=== PATIENT | female | born 1950 | race Caucasian/White ===

== ENCOUNTER 2016-09-19 11:15 | Inpatient (IN) | payer OTHER ==
[2017-03-13] MEDS ORDERED: ACETAMINOPHEN 325 MG TAB PO ONE (06:00)
[2017-03-13] MEDS ORDERED: FAMOTIDINE 20 MG TAB PO ONE (06:00)
[2017-03-13] MEDS ORDERED: TRANEXAMIC ACID 3,000 MG in NS 50 ML IRR ONE (06:00)
[2017-03-13] MEDS ORDERED: CHLORHEXIDINE GLUC HIBICLENS 118 ML BTL TP ONE (06:00)
[2017-03-13] MEDS ORDERED: DEXAMETHASONE 4 MG/ML VIAL IVP ONE (06:00)
[2017-03-13] MEDS ORDERED: ROPI/epiNEPH/KETOROLAC JOINT COCKTAIL IU ONE (06:00)
[2017-03-13] MEDS ORDERED: CEFAZOLIN 2 GM/DEXTR 100 ML IV ONE (06:00)
[2017-03-13] MEDS ORDERED: BUPIVACAINE 0.5% 30 ML SDV ONE (07:53)
[2017-03-13] MEDS ORDERED: VANCOMYCIN 1 GM VIAL IV ONE (07:56)
[2017-03-13] MEDS ORDERED: TRANEXAMIC ACID 3,000 MG/50 ML BAG IRR ONE (07:56)
[2017-03-13] MEDS ORDERED: fentaNYL 100 MCG/2 ML INJ ONE (09:31)
[2017-03-13] MEDS ORDERED: PROPOFOL/EMULSION 500 MG/50 ML BOTTLE IV ONE (09:31)
[2017-03-13] MEDS ORDERED: DEXAMETHASONE 4 MG/ML VIAL ONE ×2 (09:32→09:52)
[2017-03-13] MEDS ORDERED: LIDOCAINE 2% 5 ML SDV ONE (09:32)
[2017-03-13] MEDS ORDERED: LIDOCAINE 1% 5 ML SDV ID PRN (09:46)
[2017-03-13] MEDS ORDERED: LR 1,000 ML IV ONE (09:46)
[2017-03-13] MEDS ORDERED: FAMOTIDINE 20 MG TAB ONE (09:52)
[2017-03-13] MEDS ORDERED: ACETAMINOPHEN 325 MG TAB ONE (09:52)
[2017-03-13] MEDS ORDERED: CEFAZOLIN 2 GM/DEXTROSE/100 ML BAG IV ONE (09:52)
[2017-03-13] MEDS ORDERED: LACTULOSE 20 GM/30 ML UDCUP PO PRN (11:21)
[2017-03-13] MEDS ORDERED: POLYETHYLENE GLYCOL 3350 17 GM PKT PO PRN (11:21)
[2017-03-13] MEDS ORDERED: DIPHENOXYLATE/ATROPINE LOMOTIL 1 TAB PO PRN (11:21)
[2017-03-13] MEDS ORDERED: PROMETHAZINE HCL 25 MG SUPPR PR PRN (11:21)
[2017-03-13] MEDS ORDERED: BISACODYL 10 MG SUPP PR PRN (11:21)
[2017-03-13] MEDS ORDERED: METOCLOPRAMIDE 10 MG/2 ML VIAL IVP PRN (11:21)
[2017-03-13] MEDS ORDERED: diphenhydrAMINE 25 MG CAP PO PRN (11:21)
[2017-03-13] MEDS ORDERED: ONDANSETRON DISINTEGRATING 4 MG TAB PO PRN (11:21)
[2017-03-13] MEDS ORDERED: PHARMACY PAIN CONSULT 1 EA MISC PRN (11:21)
[2017-03-13] MEDS ORDERED: CYCLOBENZAPRINE 10 MG TAB PO PRN (11:21)
[2017-03-13] MEDS ORDERED: ONDANSETRON 4 MG/2 ML VIAL IVP PRN (11:21)
[2017-03-13] MEDS ORDERED: MAGNESIUM HYDROXIDE 30 ML UDCUP PO PRN (11:21)
[2017-03-13] MEDS ORDERED: TEMAZEPAM 15 MG CAP PO PRN (11:21)
[2017-03-13] MEDS ORDERED: PHENYLEPHRINE HCL 100 MCG/ML SYR ONE (11:25)
[2017-03-13] MEDS ORDERED: LR 1,000 ML IV SCH (11:30)
--- NOTE | 2017-03-13 12:16 | POSTOPPROG ---
Post Op Note Date of Operation: 03/13/17 Surgeon: Bernadine Helton Molder Closed Molds: horacio helton Anesthesiologist: dr. bautista Anesthesia: Spinal, Other (Specify) (adductor canal block) Pre-op Diagnosis: left knee OA Post-op Diagnosis: same Indication: left knee pain due to OA that failed conservative measures Procedure: L TKA Findings: severe knee OA Inf/Abcess present in the surg proc area at time of surgery?: No EBL: 50-100 Specimen(s): lesion in fatty tissue and bone
[2017-03-13] MEDS: ACETAMINOPHEN 325 MG TAB PO SCH ×3 (13:00→23:55)
[2017-03-13] MEDS: ceFAZolin 2 GM/DEXTROSE 100 ML IV SCH (18:19)
[2017-03-13] MEDS: HYDROmorphONE/DILAUDID 2 MG TAB PO PRN ×2 (19:13→21:19)
[2017-03-13] MEDS: SENNOSIDES/DOCUSATE SODIUM TAB PO SCH (19:58)
[2017-03-13] MEDS: FAMOTIDINE 20 MG TAB PO SCH (19:58)
[2017-03-13] MEDS: ASPIRIN 325 MG TAB PO SCH (19:58)
[2017-03-14] MEDS: HYDROmorphONE/DILAUDID 2 MG TAB PO PRN ×2 (03:59→06:26)
[2017-03-14] MEDS: ceFAZolin 2 GM/DEXTROSE 100 ML IV SCH (03:59)
[2017-03-14 05:05] LABS: HEMATOCRIT 31.9 % (38.0-47.0); HEMOGLOBIN 11.3 g/dL (12.6-16.3)
[2017-03-14] MEDS: ACETAMINOPHEN 325 MG TAB PO SCH (05:07)
[2017-03-14 05:21] LABS: ANION GAP 6 mEq/L (8-16); CALCIUM 8.7 mg/dL (8.5-10.4); CARBON DIOXIDE 22 mEq/l (22-31); CHLORIDE 105 mEq/L (97-110); GLOMERULAR FILTRATION RATE 55; GLUCOSE 152 mg/dL (70-100); POTASSIUM 4.4 mEq/L (3.5-5.2); SODIUM 133 mEq/L (134-144)
[2017-03-14 05:48] VITALS: RESP 16
[2017-03-14 08:11] VITALS: BP 90/54; PULSE 62; TEMP 98
[2017-03-14] MEDS: SENNOSIDES/DOCUSATE SODIUM TAB PO SCH (08:33)
[2017-03-14] MEDS: FAMOTIDINE 20 MG TAB PO SCH (08:33)
[2017-03-14] MEDS: traMADol 50 MG TAB PO SCH ×2 (08:43→08:45)
[2017-03-14] MEDS: ASPIRIN 325 MG TAB PO SCH (08:43)
[2017-03-14] MEDS ORDERED: ROSUVASTATIN CALCIUM 10 MG TAB PO SCH (09:00)
[2017-03-14 09:43] VITALS: O2SAT 97
--- NOTE | 2017-03-14 09:56 | GOP ---
[f rep st] OPERATIVE REPORT DATE OF OPERATION: 03/13/2017 SURGEON: Linette Jiménez MD SWING TYPE LATHE OPERATOR: MARGE Espinal. ANESTHESIA: Spinal. PREOPERATIVE DIAGNOSIS: Left knee osteoarthritis. POSTOPERATIVE DIAGNOSIS: Left knee osteoarthritis. PROCEDURE PERFORMED: Left total knee arthroplasty. FINDINGS: ESTIMATED BLOOD LOSS: 30 cc. INDICATIONS: This is a 66-year-old female with severe and progressive pain and deformity of the lef t knee unresponsive to conservative care. Risks and benefits of the surgical intervention were expl ained in detail. DESCRIPTION OF PROCEDURE: The patient was brought to the operative room and placed on the table in the supine position. Spinal anesthesia was induced without difficulty. A pneumatic tourniquet was applied about the left proximal thigh, and the leg was prepped and draped in a sterile fashion. The leg barnett was applied. After exsanguination by elevation the tourniquet was inflated to 275 mm of mercury. Incision was made anterior medial from the tibial tuberosity to a point 2 cm proximal to the superio r pole of the patella. Medial parapatellar arthrotomy was carried out from the superior pole of the patella and posteriorly in line with the fibers of the Type II VMO. The medial collateral ligament was elevated and the infrapatellar fat pad was resected. The patella was everted and the articular surface was excised. A. 35 mm patellar button was placed. The distal femoral guide hole was drilled and the 6 degree alignment arnaldo was placed. A 10 mm dista l femoral cut was made without difficulty. Attention was turned to the tibia and a standard 9 mm cut based on the lateral tibial condyle was pe rformed. The tibial articular surface was excised without difficulty. Attention was turned back to the femur and a size 3 Triathlon femoral cutting block was positioned. Anterior, posterior, and chamfer cuts were made, followed by the intercondylar box cut. The knee was extended and the remnants of the medial and lateral meniscus were excised. The posteri or capsule was injected with ropivacaine, epinephrine and Toradol. A size 3 MIS mini keel tibial tr ay was positioned. Trial reduction was then carried out. There was excellent range of motion, alig nment, and stability using the 11 mm polyethylene. All trials were then removed. The joint was thoroughly irrigated and carefully dried. Two packages of cement and 2 grams of vancomycin were mixed in the vacuum mixer and placed on the fixation surfa philip of all surfaces of the components. The components were implanted and all excess cement was thor oughly removed. The permanent 11 mm polyethylene was placed without difficulty. The tourniquet was deflated and all bleeders were coagulated. The wound was thoroughly irrigated an d closed using interrupted sutures of 2-0 Vicryl for the joint capsule. The subcu was closed with 3 -0 Vicryl and the skin with 4-0 Monocryl. Dermabond and Steri-Strips were applied followed by a com pressive dressing. The patient was then moved from the operating room to the recovery room in good condition, having tolerated the procedure well. PATHOLOGY: Severe medial and patellofemoral osteoarthritis. /[id number]/MODL
--- NOTE | 2017-03-14 14:23 | SOAPPROG ---
SOAP Progress Note Assessment/Plan: Assessment: Patient is doing well POD 1 s/p L TKA 1)Pain management: pain is well controlled on oral pain meds. 2)VTE ppx: recommend aspirin daily for 3 weeks, cont NAYELY and SCDs 3)Anemia: level is expected initially postop. Asymptomatic. Continue to monitor D/c planning: d/c to home today pending release from PT Plan: 03/14/17 14:21 Subjective: Rafaela is doing well today, denies SOB, chest pain and N/.v Objective: Vital Signs Temp Pulse Resp BP Pulse Ox 36.6 C 62 16 90/54 L 97 03/14/17 08:09 03/14/17 08:09 03/14/17 08:09 03/14/17 08:09 03/14/17 09:15 Laboratory Results 03/14/17 04:47 03/14/17 04:47 03/13/17 03/14/17 03/15/17 05:59 05:59 05:59 Intake Total 2200 1200 Output Total 1230 Balance 970 1200 LLE: incision dressing is clean and dry, NVI, +pf/df ICD10 Worksheet Patient Problems: Problems Problem Status Onset Primary localized osteoarthritis of left knee Acute
--- NOTE | 2017-03-14 14:47 | GDS ---
[f rep st] DISCHARGE SUMMARY ADMISSION DIAGNOSIS: Left knee osteoarthritis. DISCHARGE DIAGNOSIS: Left knee osteoarthritis. PROCEDURE: Left total knee arthroplasty. VTE PROPHYLAXIS: Aspirin recommended for 3 weeks daily. BRIEF DESCRIPTION OF HOSPITAL STAY: Patient was admitted for an elective joint arthroplasty. The p atient tolerated the procedure well and has passed physical therapy. The patient was given appropri ate antibiotic prophylaxis and venous thromboembolism prophylaxis. The patient's pain was well cont rolled on oral pain medication, patient was holding down food, and had urinated. Decision was made to discharge the patient. The patient was given post-operative prescriptions pre-operatively. PLAN: To follow up with Dr. Jiménez at [facility] in 2 to 3 weeks. /[id number]/MODL
== END 2017-03-14 11:41 | disposition home or self-care (01) | DRG 470 ==
LOC: F3N 03-13 09:06
PROVIDERS: ADMIT Orthopaedic Surgery; ATTEND Orthopaedic Surgery
PROC: 0SRD0J9 Replacement of Left Knee Joint with Synthetic Substitute, Cemented, Open Approach (ICD-10-PCS; principal; 2017-03-13 11:15)
DX: M17.12 Unilateral primary osteoarthritis, left knee (principal)
CPT/HCPCS: 97116-GP; 97161-GP; 97165-GO; C1713; G8978-GP-CJ; G8979-GP-CI; G8980-GP-CI; G8987-GO-CI; G8988-GO-CI; G8989-GO-CI; J0171; J0690; J1100; J1885; J2370; J2704; J2795; J3010; J3370

== ENCOUNTER → 2017-09-05 | Outpatient (CLI) | payer OTHER | LOC: FIMAGING 09:48 | PROVIDERS: ATTEND Internal Medicine | DX: Z12.31 Encounter for screening mammogram for malignant neoplasm of breast (principal); Z80.3 Family history of malignant neoplasm of breast | CPT/HCPCS: G0202 ==

== ENCOUNTER → 2017-11-01 | Outpatient (CLI) | payer OTHER | LOC: FIMAGING 13:00 | PROVIDERS: ATTEND Internal Medicine | DX: Z13.820 Encounter for screening for osteoporosis (principal); Z78.0 Asymptomatic menopausal state; Z79.52 Long term (current) use of systemic steroids; Z96.643 Presence of artificial hip joint, bilateral ==

== ENCOUNTER → 2018-09-08 | Outpatient (CLI) | payer OTHER | LOC: FIMAGING 10:55 | PROVIDERS: ATTEND Internal Medicine | DX: Z12.31 Encounter for screening mammogram for malignant neoplasm of breast (principal); Z80.3 Family history of malignant neoplasm of breast ==